=== PATIENT | female | born 1985 | race Caucasian/White ===

== ENCOUNTER 2019-02-09 17:06 | Emergency (ER) | payer OTHER, SELFPAY ==
[2019-02-09 17:26] VITALS: BP 113/78; PULSE 75; RESP 16; TEMP 37.2; O2SAT 99; BMI 28.0
--- NOTE | 2019-02-09 17:30 | DI.RAD.S_ITS ---
PROCEDURE: XR FINGER RT MIN 2V INDICATIONS: jose a kaur, now with right thumb pain and swelling TECHNIQUE: AP hand, 2 views of the thumb were obtained COMPARISON: None. FINDINGS: Bones: No fractures or dislocations. No suspicious bony lesions. Soft tissues: No suspicious soft tissue calcifications. IMPRESSION: No acute osseous abnormality of the thumb. Dictated by: Bony Bolanos M.D. on 02/09/2019 at 17:00 Approved by: Bony Bolanos M.D. on 02/09/2019 at 17:01
--- NOTE | 2019-02-09 18:20 | ED.UPPEXIN ---
HPI - Extremity Injury (Upper) <JENNIFER WilsonMARY [facility] - Last Filed: 02/09/19 18:27> General Chief Complaint: Extremity Injury, Upper Stated Complaint: thumb hurting Time Seen by Provider: 02/09/19 17:44 Source: patient Mode of arrival: ambulatory Limitations: no limitations History of Present Illness HPI narrative: The patient is a 33-year-old female nonsmoker with a chief complaint of right thumb pain. She states that she was in a [employer] turned event earlier today and hit a board incorrectly with her thumb. She states she has some movement. She has taken diclofenac. She has not applied ice. She states she has decreased range of motion. She denies any previous injury to that extremity. She is concerned about a fracture. She is concerned that she had increased bruising since the injury. She states this happened at approximately noon today Related Data Allergies Allergy/AdvReac Type Severity Reaction Status Date / Time codeine AdvReac Verified 02/09/19 17:26 duloxetine [From Cymbalta] AdvReac Verified 02/09/19 17:26 Penicillins AdvReac Swelling Verified 02/09/19 17:26 of Lip/Tongue/Throat Sulfa (Sulfonamide AdvReac Verified 02/09/19 17:26 Antibiotics) tetracycline AdvReac Verified 02/09/19 17:26 vancomycin AdvReac Verified 02/09/19 17:26 Review of Systems <[facility] - Last Filed: 02/09/19 18:27> Review of Systems GENERAL: Denies chills, fatigue, malaise, fever, sweats. HEENT: Denies sinus pain, ear pain, sore throat, difficulty swallowing, dizziness. RESPIRATORY: Denies dyspnea, cough, wheezing, hemoptysis, sputum. CARDIOVASCULAR: Denies chest pain, palpitations, orthopnea, edema, GASTROINTESTINAL: Denies nausea, vomiting, abdominal pain, diarrhea, constipation, melena. : Denies dysuria, frequency, incontinence, hematuria, urinary retention. MUSCULOSKELETAL: See HPI SKIN: See HPI NEUROLOGIC: Denies weakness, headache, numbness, change in speech, confusion, seizures, incoordination. PSYCHIATRIC: No concerning psychosocial issues. 12 point review of systems is negative except for those stated above PFSH <JENNIFER WilsonMARY [facility] - Last Filed: 02/09/19 18:27> Medical History (Updated 02/09/19 @ 18:26 by DEZ Wilson) Family history non-contributory (Acute) Social History Smoking Status: Never smoker Social History Smoking Status: Never smoker Exam <DEZ Wilson - Last Filed: 02/09/19 18:27> Narrative Exam Narrative: GENERAL: This is a well-nourished, well-developed patient, no acute distress HEAD: Atraumatic. Normocephalic. No temporal or scalp tenderness. EYES: Pupils equal round and reactive. Extraocular motions intact. No scleral icterus. No injection or drainage. ENT: Nose without bleeding, purulent drainage or septal hematoma. Throat without erythema, tonsillar hypertrophy or exudate. Uvula midline. Airway patent. NECK: Trachea midline. No JVD or lymphadenopathy. Supple, nontender, no meningeal signs. CARDIOVASCULAR: Regular rate and rhythm RESPIRATORY: No cough. No increased respiratory effort. No accessory muscle use. EXTREMITIES: Pain to palpation generalized 1st digit right hand. Capillary refill less than 2 seconds. Able to flex and extend right thumb. No palpable deformity.. She has no pain to palpation of right wrist. No snuffbox tenderness to palpation. Positive radial pulse. BACK: Nontender without deformity or crepitance. No flank tenderness. NEURO: AOx3. SKIN: Ecchymosis noted over 1st digit of right hand. Initial Vital Signs Initial Vital Signs: Vital Signs Temperature 98.9 F 02/09/19 17:26 Pulse Rate 75 02/09/19 17:26 Respiratory Rate 16 02/09/19 17:26 Blood Pressure 113/78 02/09/19 17:26 Pulse Oximetry 99 02/09/19 17:26 <Dorita Herrera DO - Last Filed: 02/10/19 07:31> Initial Vital Signs Initial Vital Signs: Vital Signs Temperature 98.9 F 02/09/19 17:26 Pulse Rate 75 02/09/19 17:26 Respiratory Rate 16 02/09/19 17:26 Blood Pressure 113/78 02/09/19 17:26 Pulse Oximetry 99 02/09/19 17:26 Course <DEZ Wilson - Last Filed: 02/09/19 18:27> Orders Ordered: ED Orders 02/09/19 17:30 XR finger RT min 2V Stat Vital Signs - 8 hr 02/09/19 17:26 Temperature 98.9 F Pulse Rate 75 Respiratory Rate 16 Blood Pressure 113/78 Pulse Oximetry 99 <Dorita Herrera DO - Last Filed: 02/10/19 07:31> Orders Ordered: ED Orders 02/09/19 17:30 XR finger RT min 2V Stat Vital Signs - 8 hr 02/09/19 17:26 Temperature 98.9 F Pulse Rate 75 Respiratory Rate 16 Blood Pressure 113/78 Pulse Oximetry 99 MDM - Extremity Injury (Upper) <DEZ Wilson - Last Filed: 02/09/19 18:27> Imaging Data thumb x-ray: Radiologist's impression: [address] [address] XRay Report Signed Patient: Tana Hui#: [id number] : 1985Acct:[id number] Age/Sex: 33 / FDate of Service: 02/09/19 Loc: ED Accession Number: [id number] Procedure: XR finger RT min 2V Ordering Provider: Dorita Herrera D.O. PROCEDURE: XR FINGER RT MIN 2V INDICATIONS: tae kwondo, now with right thumb pain and swelling TECHNIQUE: AP hand, 2 views of the thumb were obtained COMPARISON: None. FINDINGS: Bones: No fractures or dislocations. No suspicious bony lesions. Soft tissues: No suspicious soft tissue calcifications. IMPRESSION: No acute osseous abnormality of the thumb. Dictated by: Bony Bolanos M.D. on 02/09/2019 at 17:00 Approved by: Bony Bolanos M.D. on 02/09/2019 at 17:01 [facility] Narrative Medical decision making narrative: The patient is a 33-year-old female who presents with a chief complaint of thumb pain after hitting on board during intake went to competition. Her x-ray shows no acute fractures. I discussed at length rest ice compression elevation as well as [id number] pain medications as needed and able. She is neurovascularly intact. Encouraged follow-up with PCP if needed. Discussed possibility of an occult fracture. Patient has no questions or concerns upon discharge and states follow-up precautions with her PCP as well as return precautions the emergency department such as decreased circulation to her thumb or any acute concerns. The patient declined any Volodymyr wrap or immobility in the emergency department. Discharge Plan Departure Patient Disposition: Home Clinical Impression: Contusion of left thumb Qualifiers: Encounter type: initial encounter Damage to nail status: without damage Qualified Code(s): S60.012A - Contusion of left thumb without damage to nail, initial encounter Discharge Date/Time: 02/09/19 18:29 Interventions: ED Discharge Assessment Last Done: 02/09/19 18:29 Instructions: DI for Contusion, How To Perform RICE (Rest, Ice, Compress, Elevate) Activity Restrictions/Additional Instructions: Your x-ray today shows no fracture. Please use rest ice compression elevation Please use [id number] pain medications as needed and able. Please follow up with primary care provider if no improvement or worsening. Please come back to the emergency department for any acute concerns. Referrals: [facility] [Provider Group] <Dorita Herrera DO - Last Filed: 02/10/19 07:31> Cosign ED Attending Heidi Attestation: I was immediately available in the department for consultation. Documentation has been reviewed. I agree with assessment and plan.
--- NOTE | 2019-02-09 18:26 | ED_ITS ---
HPI - Extremity Injury (Upper) <[facility] - Last Filed: 02/09/19 18:27> General Chief Complaint: Extremity Injury, Upper Stated Complaint: thumb hurting Time Seen by Provider: 02/09/19 17:44 Source: patient Mode of arrival: ambulatory Limitations: no limitations History of Present Illness HPI narrative: The patient is a 33-year-old female nonsmoker with a chief complaint of right thumb pain. She states that she was in a [employer] turned event earlier today and hit a board incorrectly with her thumb. She states she has some movement. She has taken diclofenac. She has not applied ice. She states she has decreased range of motion. She denies any previous injury to that extremity. She is concerned about a fracture. She is concerned that she had increased bruising since the injury. She states this happened at approximately noon today Related Data Allergies Allergy/AdvReac Type Severity Reaction Status Date / Time codeine AdvReac Verified 02/09/19 17:26 duloxetine [From Cymbalta] AdvReac Verified 02/09/19 17:26 Penicillins AdvReac Swelling Verified 02/09/19 17:26 of Lip/Tongue/Throat Sulfa (Sulfonamide AdvReac Verified 02/09/19 17:26 Antibiotics) tetracycline AdvReac Verified 02/09/19 17:26 vancomycin AdvReac Verified 02/09/19 17:26 Review of Systems <[facility] - Last Filed: 02/09/19 18:27> Review of Systems GENERAL: Denies chills, fatigue, malaise, fever, sweats. HEENT: Denies sinus pain, ear pain, sore throat, difficulty swallowing, dizziness. RESPIRATORY: Denies dyspnea, cough, wheezing, hemoptysis, sputum. CARDIOVASCULAR: Denies chest pain, palpitations, orthopnea, edema, GASTROINTESTINAL: Denies nausea, vomiting, abdominal pain, diarrhea, constipation, melena. : Denies dysuria, frequency, incontinence, hematuria, urinary retention. MUSCULOSKELETAL: See HPI SKIN: See HPI NEUROLOGIC: Denies weakness, headache, numbness, change in speech, confusion, seizures, incoordination. PSYCHIATRIC: No concerning psychosocial issues. 12 point review of systems is negative except for those stated above PFSH <[facility] - Last Filed: 02/09/19 18:27> Medical History (Updated 02/09/19 @ 18:26 by DEZ Wilson) Family history non-contributory (Acute) Social History Smoking Status: Never smoker Social History Smoking Status: Never smoker Exam <DEZ Wilson - Last Filed: 02/09/19 18:27> Narrative Exam Narrative: GENERAL: This is a well-nourished, well-developed patient, no acute distress HEAD: Atraumatic. Normocephalic. No temporal or scalp tenderness. EYES: Pupils equal round and reactive. Extraocular motions intact. No scleral icterus. No injection or drainage. ENT: Nose without bleeding, purulent drainage or septal hematoma. Throat without erythema, tonsillar hypertrophy or exudate. Uvula midline. Airway patent. NECK: Trachea midline. No JVD or lymphadenopathy. Supple, nontender, no meningeal signs. CARDIOVASCULAR: Regular rate and rhythm RESPIRATORY: No cough. No increased respiratory effort. No accessory muscle use. EXTREMITIES: Pain to palpation generalized 1st digit right hand. Capillary refill less than 2 seconds. Able to flex and extend right thumb. No palpable deformity.. She has no pain to palpation of right wrist. No snuffbox tenderness to palpation. Positive radial pulse. BACK: Nontender without deformity or crepitance. No flank tenderness. NEURO: AOx3. SKIN: Ecchymosis noted over 1st digit of right hand. Initial Vital Signs Initial Vital Signs: Vital Signs Temperature 98.9 F 02/09/19 17:26 Pulse Rate 75 02/09/19 17:26 Respiratory Rate 16 02/09/19 17:26 Blood Pressure 113/78 02/09/19 17:26 Pulse Oximetry 99 02/09/19 17:26 <Dorita Herrera DO - Last Filed: 02/10/19 07:31> Initial Vital Signs Initial Vital Signs: Vital Signs Temperature 98.9 F 02/09/19 17:26 Pulse Rate 75 02/09/19 17:26 Respiratory Rate 16 02/09/19 17:26 Blood Pressure 113/78 02/09/19 17:26 Pulse Oximetry 99 02/09/19 17:26 Course <DEZ Wilson - Last Filed: 02/09/19 18:27> Orders Ordered: ED Orders 02/09/19 17:30 XR finger RT min 2V Stat Vital Signs - 8 hr 02/09/19 17:26 Temperature 98.9 F Pulse Rate 75 Respiratory Rate 16 Blood Pressure 113/78 Pulse Oximetry 99 <Dorita Herrera DO - Last Filed: 02/10/19 07:31> Orders Ordered: ED Orders 02/09/19 17:30 XR finger RT min 2V Stat Vital Signs - 8 hr 02/09/19 17:26 Temperature 98.9 F Pulse Rate 75 Respiratory Rate 16 Blood Pressure 113/78 Pulse Oximetry 99 MDM - Extremity Injury (Upper) <DEZ Wilson - Last Filed: 02/09/19 18:27> Imaging Data thumb x-ray: Radiologist's impression: [address] [address] XRay Report Signed Patient: Tana Hui#: [id number] : 1985Acct:[id number] Age/Sex: 33 / FDate of Service: 02/09/19 Loc: ED Accession Number: [id number] Procedure: XR finger RT min 2V Ordering Provider: Dorita Herrera D.O. PROCEDURE: XR FINGER RT MIN 2V INDICATIONS: tae kwondo, now with right thumb pain and swelling TECHNIQUE: AP hand, 2 views of the thumb were obtained COMPARISON: None. FINDINGS: Bones: No fractures or dislocations. No suspicious bony lesions. Soft tissues: No suspicious soft tissue calcifications. IMPRESSION: No acute osseous abnormality of the thumb. Dictated by: Bony Bolanos M.D. on 02/09/2019 at 17:00 Approved by: Bony Bolanos M.D. on 02/09/2019 at 17:01 [facility] Narrative Medical decision making narrative: The patient is a 33-year-old female who presents with a chief complaint of thumb pain after hitting on board during intake went to competition. Her x-ray shows no acute fractures. I discussed at length rest ice compression elevation as well as [id number] pain medications as needed and able. She is neurovascularly intact. Encouraged follow-up with PCP if needed. Discussed possibility of an occult fracture. Patient has no questions or concerns upon discharge and states follow-up precautions with her PCP as well as return precautions the emergency department such as decreased circulation to her thumb or any acute concerns. The patient declined any Volodymyr wrap or immobility in the emergency department. Discharge Plan Departure Patient Disposition: Home Clinical Impression: Contusion of left thumb Qualifiers: Encounter type: initial encounter Damage to nail status: without damage Qualified Code(s): S60.012A - Contusion of left thumb without damage to nail, initial encounter Discharge Date/Time: 02/09/19 18:29 Interventions: ED Discharge Assessment Last Done: 02/09/19 18:29 Instructions: DI for Contusion, How To Perform RICE (Rest, Ice, Compress, Elevate) Activity Restrictions/Additional Instructions: Your x-ray today shows no fracture. Please use rest ice compression elevation Please use [id number] pain medications as needed and able. Please follow up with primary care provider if no improvement or worsening. Please come back to the emergency department for any acute concerns. Referrals: [facility] [Provider Group] <Dorita Herrera DO - Last Filed: 02/10/19 07:31> Cosign ED Attending Heidi Attestation: I was immediately available in the department for consultation. Documentation has been reviewed. I agree with assessment and plan.
== END 2019-02-09 18:29 | disposition home or self-care (01) ==
PROVIDERS: Emergency Provider Nurse Practitioner Family
DX: S60.012A Contusion of left thumb without damage to nail, initial encounter (principal)
CPT/HCPCS: 73140; 99282; 99283

== ENCOUNTER 2019-07-04 19:43 | Emergency (ER) | payer OTHER, SELFPAY ==
--- NOTE | 2019-07-04 19:53 | ED.URI ---
HPI - URI/Sore Throat <Mady Acevedo PA-C - Last Filed: 07/04/19 20:35> General Chief Complaint: Upper Respiratory Symptoms Stated Complaint: sore throat, make sure no strep Time Seen by Provider: 07/04/19 19:50 Source: patient Mode of arrival: Ambulatory Limitations: no limitations History of Present Illness HPI Narrative: This 28-year-old female comes to ED secondary to concern for strep throat. She states that a coworker's son had this, and in the last 2-3 days she has had worsening sore throat, spouse noted white pockets and swelling on her tonsils. She has had fever up to 101-1 0 to range at home, has been taking ibuprofen. She states this is more severe than the sore throats that she has had in the past, but not short of breath or having difficulty swallowing. She states that her left ear feels a little bit congestion and sore. She has had some headache that is not typical of her previous sinus headaches, denies sinus pain. She denies cough, wheeze, dyspnea or chest pain. She has noted some swollen glands. She denies possibility of . She has multiple antibiotic allergies Related Data Previous Rx's Medication Instructions Recorded azithromycin See Rx Instructions .ROUTE 07/04/19 .COMPLEX #6 tab lidocaine HCl [Lidocaine Viscous] 15 ml PO Q3-4H PRN #150 ml 07/04/19 Allergies Allergy/AdvReac Type Severity Reaction Status Date / Time codeine AdvReac Verified 07/04/19 19:59 duloxetine [From Cymbalta] AdvReac Verified 07/04/19 19:59 Penicillins AdvReac Swelling Verified 07/04/19 19:59 of Lip/Tongue/Throat Sulfa (Sulfonamide AdvReac Verified 07/04/19 19:59 Antibiotics) tetracycline AdvReac Verified 07/04/19 19:59 vancomycin AdvReac Verified 07/04/19 19:59 Review of Systems <Mady Acevedo PA-C - Last Filed: 07/04/19 20:35> Review of Systems ROS Unobtainable: All systems reviewed & are unremarkable except as noted in HPI and below Patient History <Mady Acevedo PA-C - Last Filed: 07/04/19 20:35> Medical History (Updated 01/16/20 @ 20:34 by Mady Acevedo PA-C) Allergy-induced asthma (Chronic) Chronic sinusitis (Chronic) Family history non-contributory (Acute) Surgical History (Updated 07/04/19 @ 20:34 by Mady Acevedo PA-C) History of sinus surgery (Resolved) Status post hysterectomy with oophorectomy (Resolved) Social History Smoking Status: Never smoker Smoking Status: Never smoker Substance Use Type: does not use Exam <Mady Acevedo PA-C - Last Filed: 07/04/19 20:35> Narrative Exam Narrative: GENERAL APPEARANCE: Patient comfortable, in NAD HEAD: No sinus TTP. EYES: PERRL, EOMI. EARS: Normal auditory canals, TMS intact with normal light reflexes. ORAL CAVITY: Normal oropharynx. THROAT: Erythematous with enlarged tonsils and some posterior exudate on postnasal drip, no tonsillar exudate NECK/THYROID: Neck supple, full range of motion, shotty, tender anterior cervical lymphadenopathy. LUNGS: Clear to auscultation bilaterally, no cough on exam. HEART: RRR without murmur, nl S1, S2, no S3 or S4 DERMATOLOGIC: No exanthem Initial Vital Signs Initial Vital Signs: Vital Signs Temperature 97.6 F 07/04/19 19:58 Pulse Rate 74 07/04/19 19:58 Respiratory Rate 16 07/04/19 19:58 Blood Pressure 106/71 07/04/19 19:58 Pulse Oximetry 98 07/04/19 19:58 <Ted Shaw DO - Last Filed: 07/05/19 00:29> Initial Vital Signs Initial Vital Signs: Vital Signs Temperature 97.6 F 07/04/19 19:58 Pulse Rate 74 07/04/19 19:58 Respiratory Rate 16 07/04/19 19:58 Blood Pressure 106/71 07/04/19 19:58 Pulse Oximetry 98 07/04/19 19:58 Course <Mady Acevedo PA-C - Last Filed: 07/04/19 20:35> Vital Signs Vital signs: Vital Signs - 8 hr 07/04/19 19:58 Temperature 97.6 F Pulse Rate 74 Respiratory Rate 16 Blood Pressure 106/71 Pulse Oximetry 98 <DO Brett Maguire Last Filed: 07/05/19 00:29> Vital Signs Vital signs: Vital Signs - 8 hr 07/04/19 19:58 Temperature 97.6 F Pulse Rate 74 Respiratory Rate 16 Blood Pressure 106/71 Pulse Oximetry 98 MDM - URI/Sore Throat <Mady Acevedo PA-C - Last Filed: 07/04/19 20:35> Lab Data Labs: Point of Care Testing Rapid Strep A Positive <Ted Shaw DO - Last Filed: 07/05/19 00:29> Lab Data Labs: Point of Care Testing Rapid Strep A Positive Discharge Plan Departure Patient Disposition: Home Clinical Impression: Strep throat Discharge Date/Time: 07/04/19 20:26 Instructions: DI for Strep Throat Activity Restrictions/Additional Instructions: As we talked about, you should return if you have any acutely worsening symptoms, or new symptoms such as difficulty breathing or managing your secretions. Otherwise, please start the antibiotic when you pick it up tonight. Remain off of work tomorrow. Continue ibuprofen for pain and fever, and you can also use the viscous lidocaine to help with pain. You can return to work on Monday if you are feeling better. Your prescriptions were sent electronically to [facility] [place] Prescriptions: New azithromycin 250 mg tablet See Rx Instructions .ROUTE .COMPLEX Qty: 6 RF: 0 Lidocaine Viscous 2 % solution 15 ml PO Q3-4H PRN (Reason: ST) Qty: 150 RF: 0 Stand Alone Forms: Work Release Note, Work/School Release
[2019-07-04 19:58] VITALS: BP 106/71; PULSE 74; RESP 16; TEMP 36.4; O2SAT 98; BMI 28.1
== END 2019-07-04 20:26 | disposition home or self-care (01) ==
PROVIDERS: Emergency Provider Internal Medicine
DX: J02.0 Streptococcal pharyngitis (principal)
CPT/HCPCS: 87880; 99281; 99283

== ENCOUNTER 2021-03-27 00:28 | Emergency (ER) | payer OTHER, SELFPAY ==
[2021-03-27 00:40] VITALS: BP 124/76; PULSE 81; RESP 16; TEMP 36.9; O2SAT 99; BMI 28.3
--- NOTE | 2021-03-27 01:11 | DI.US.S_ITS ---
PROCEDURE: US ABDOMEN LIMITED INDICATIONS: RUQ PAIN TECHNIQUE: Real-time focused scanning was performed of the abdomen, with image documentation. COMPARISON: None. FINDINGS: Liver: Homogeneous echotexture. No evidence of focal mass lesion. No intra hepatic biliary ductal dilatation Gallbladder: Sonolucent without cholelithiasis. No gallbladder wall thickening. No pericholecystic fluid or Burks's sign. Common Bile Duct: 6 point mm. Pancreas: Unremarkable as visualized IMPRESSION: Unremarkable right upper quadrant ultrasound Approved by: Teddy Sanchez M.D. on 03/27/2021 at 0:56
--- NOTE | 2021-03-27 01:12 | ED_ITS ---
HPI - Abdominal Pain General Chief Complaint: Abdominal Pain Stated Complaint: right side pain since last night Time Seen by Provider: 03/27/21 01:05 Source: patient Mode of arrival: Ambulatory Limitations: no limitations History of Present Illness HPI narrative: Patient here for right upper quadrant pain that radiates to right middle back that started 9:00 p.m. after eating pizza and hot wings tonight. Has been constant. Sharp 01/26. Did take medicine prior to arrival without complete relief. Patient has had similar abdominal pain in the past few years that would resolve on its own. Still has her gallbladder. Episodes in the past worsened after eating. History hysterectomy. No chest pain. No shoulder pain. Positive Burks sign on exam Related Data Previous Rx's Medication Instructions Recorded azithromycin 250 mg tablet See Rx Instructions .ROUTE 07/04/19 .COMPLEX #6 tab lidocaine HCl 2 % mucosal solution 15 ml PO Q3-4H PRN #150 ml 07/04/19 (Lidocaine Viscous) pantoprazole 40 mg tablet,delayed 40 mg PO DAILY #14 tab 03/27/21 release (Protonix) sucralfate 1 gram tablet (Carafate) 1 g PO BID #20 tab 03/27/21 Allergies Allergy/AdvReac Type Severity Reaction Status Date / Time codeine AdvReac Verified 07/04/19 19:59 duloxetine [From Cymbalta] AdvReac Verified 07/04/19 19:59 Penicillins AdvReac Swelling Verified 07/04/19 19:59 of Lip/Tongue/Throat Sulfa (Sulfonamide AdvReac Verified 07/04/19 19:59 Antibiotics) tetracycline AdvReac Verified 07/04/19 19:59 vancomycin AdvReac Verified 07/04/19 19:59 Review of Systems Review of Systems Narrative: GENERAL: Denies chills, fatigue, malaise, fever, sweats. HEENT: Denies sinus pain, ear pain, sore throat RESPIRATORY: Denies dyspnea, cough CARDIOVASCULAR: Denies chest pain, palpitations GASTROINTESTINAL: Positive fornausea, denies vomiting, positive abdominal pain : Denies dysuria, frequency, hematuria MUSCULOSKELETAL: denies muscle or bony pain SKIN: Denies rash, skin lesions NEUROLOGIC: Denies weakness, numbness ROS Unobtainable: All systems reviewed & are unremarkable except as noted in HPI and below Patient History Medical History Allergy-induced asthma Chronic sinusitis Family history non-contributory Surgical History History of sinus surgery Status post hysterectomy with oophorectomy Social History Smoking Status: Never smoker Smoking Status: Never smoker Substance Use Type: does not use Exam Narrative Exam Narrative: GENERAL: in no distress, not toxic not dyspneic HEAD: Normocephalic. EYES: Pupils equal round No scleral icterus. No injection no discharge ENT: Mucous membranes moist. NECK: Trachea midline. CARDIOVASCULAR: Regular rate and rhythm without murmurs RESPIRATORY: Clear to auscultation. Breath sounds equal bilaterally. No wheezes, rales, or rhonchi. GASTROINTESTINAL: Abdomen soft, reproducible right upper quadrant tenderness, positive Burks sign, bowel sounds present, no peritoneal signs EXTREMITIES: No gross deformities. BACK: No flank tenderness. NEURO: AOx4. SKIN: Warm and dry PSYCH: Not anxious, is cooperative Initial Vital Signs Initial Vital Signs: Vital Signs Temperature 98.4 F 03/27/21 00:40 Pulse Rate 81 03/27/21 00:40 Respiratory Rate 16 03/27/21 00:40 Blood Pressure 124/76 03/27/21 00:40 Pulse Oximetry 99 03/27/21 00:40 Course Course Course Narrative: No new issues during course of stay Orders Ordered: Discontinued Medications Morphine Sulfate (Morphine 4 Mg/Ml Inj) 4 mg IV NOW ONE Stop: 03/27/21 01:11 Last Admin: 03/27/21 01:29 Dose: 4 mg Documented by: DAKOTAH Ondansetron HCl (Ondansetron 4 Mg/2 Ml Inj) 4 mg IV NOW ONE Stop: 03/27/21 01:11 Last Admin: 03/27/21 01:29 Dose: 4 mg Documented by: DAKOTAH Reevaluation(s) Reevaluation #1: Pain-free at this time. Reviewed results with patient and . Agree for follow-up with provided general surgeon. May need HIDA scan. Dietary changes needed. Return precautions reviewed Time: 02:38 Vital Signs Vital signs: Vital Signs - 8 hr 03/27/21 00:40 Temperature 98.4 F Pulse Rate 81 Respiratory Rate 16 Blood Pressure 124/76 Pulse Oximetry 99 MDM - Abdominal Pain Differential Diagnosis Differential diagnosis: Likely abdominal pain, pancreatitis and other (Cholecystitis) Lab Data Result diagrams: 03/27/21 01:01 03/27/21 01:01 Labs: Lab Results 03/27/21 03/27/21 Range/Units 01:01 01:01 WBC 9.6 (4.5-11.0) X10^3/uL RBC 4.54 (4.0-5.2) X10^6/uL Hgb 13.4 (12.0-16.0) g/dL Hct 39.5 (36-46) % MCV 86.9 (80-100) fL MCH 29.5 (26-34) PG MCHC 33.9 (30-36) % RDW 12.4 (11.6-14.8) % Plt Count 214 (150-400) X10^3/uL Neut % (Auto) 62.6 (50-75) % Lymph % (Auto) 29.6 (25-40) % Hockley % (Auto) 5.8 (3-14) % Eos % (Auto) 1.5 L (2-4) % Baso % (Auto) 0.5 (0-2) % Neut # (Auto) 6000 (7750-4925) /uL Lymph # (Auto) 2800 (1434-8292) /uL Hockley # (Auto) 600 (0-900) /uL Eos # (Auto) 100 (0-450) /uL Baso # (Auto) 0 (0-100) /uL Sodium 137 (137-145) mmol/L Potassium 3.7 (3.4-5.1) mmol/L Chloride 103 (98-107) mmol/L Carbon Dioxide 27 (22-32) mmol/L BUN 16 (7-17) mg/dL Creatinine 0.86 (0.52-1.04) mg/dL Estimated GFR > 60.0 (>60) mL/min BUN/Creatinine Ratio 18.6 (6-22) Glucose 99 (70-100) mg/dL Calcium 9.7 (8.4-10.2) mg/dL Total Bilirubin 0.5 (0.2-1.3) mg/dL AST 22 (14-36) IU/L ALT 15 (<35) IU/L Alkaline Phosphatase 64 (38-126) U/L Total Protein 8.1 (6.3-8.2) g/dL Albumin 4.5 (3.5-5.0) g/dL Globulin 3.6 (1.7-4.1) g/dL Albumin/Globulin Ratio 1.3 (1.0-2.8) Lipase 203 (23-300) U/L Imaging Data US - abdomen: Radiologist's Impression: [address] [address] Ultrasound Report Signed Patient: Darby Hui MR#: [id number] : 1985 Acct:[id number] Age/Sex: 35 / F Date of Service: 03/27/21 Loc: ED Accession Number: [id number] ?? Procedure: US abdomen limited Ordering Provider: Carlos Grider MD PROCEDURE: US ABDOMEN LIMITED ? INDICATIONS:? RUQ PAIN ? TECHNIQUE:? Real-time focused scanning was performed of the abdomen, with image documentation.? ? COMPARISON:? None. ? FINDINGS: ? Liver:? Homogeneous echotexture.? No evidence of focal mass lesion.? No intra hepatic biliary ductal dilatation ? Gallbladder:? Sonolucent without cholelithiasis.? No gallbladder wall thickening. No pericholecystic fluid or Burks's sign. ? Common Bile Duct:? 6 point mm. ? Pancreas:? Unremarkable as visualized ? IMPRESSION:? ? Unremarkable right upper quadrant ultrasound ? ? ? Approved by: Teddy Sanchez M.D. on 03/27/2021 at 0:56? MDM Narrative Medical decision making narrative: Appropriate for discharge home. Vital signs exam laboratory studies and imaging reassuring. Reviewed with patient and could be biliary dyskinesia. Still needs HIDA scan. Dietary changes needed. Return precautions reviewed with him. Discharge Plan Departure Patient Disposition: Home Clinical Impression: Abdominal pain Qualifiers: Abdominal location: right upper quadrant Qualified Code(s): R10.11 - Right upper quadrant pain Instructions: DI for Abdominal Pain-Adult Activity Restrictions/Additional Instructions: Return if worsening questions or concerns. No driving tonight. See family doctor or call provided general surgery office for re-evaluation next week. May need to schedule outpatient HIDA scan for gallbladder. No fried fatty greasy foods. No carbonated drinks. Prescriptions: New pantoprazole [Protonix] 40 mg tablet,delayed release (DR/EC) 40 mg PO DAILY Qty: 14 RF: 0 sucralfate [Carafate] 1 gram tablet 1 g PO BID Qty: 20 RF: 0 No Action azithromycin 250 mg tablet See Rx Instructions .ROUTE .COMPLEX Qty: 6 RF: 0 Lidocaine Viscous 2 % solution 15 ml PO Q3-4H PRN (Reason: ST) Qty: 150 RF: 0 Referrals: Joshua Pulido MD [Physician] -
[2021-03-27 01:20] LABS: Add Manual Diff / Slide Review NO; Basophils Absolute Auto 0 /uL (0-100); Basophils Percent Auto 0.5 % (0-2); Eosinophils Absolute Auto 100 /uL (0-450); Eosinophils Percent Auto 1.5 % (2-4); Hematocrit 39.5 % (36-46); Hemoglobin 13.4 g/dL (12.0-16.0); Lymphocytes Absolute Auto 2800 /uL (1100-4500); Lymphocytes Percent Auto 29.6 % (25-40); Mean Corpuscular HGB Conc 33.9 % (30-36); Mean Corpuscular Hemoglobin 29.5 PG (26-34); Mean Corpuscular Volume 86.9 fL (80-100); Monocytes Absolute Auto 600 /uL (0-900); Monocytes Percent Auto 5.8 % (3-14); Neutrophils Absolute Auto 6000 /uL (1500-7000); Neutrophils Percent Auto 62.6 % (50-75); Platelet Count 214 X10^3/uL (150-400); Red Blood Cell Count 4.54 X10^6/uL (4.0-5.2); Red Cell Distribution Width 12.4 % (11.6-14.8); White Blood Cell Count 9.6 X10^3/uL (4.5-11.0)
[2021-03-27 01:25] LABS: Alanine Aminotransferase 15 IU/L (<35); Albumin 4.5 g/dL (3.5-5.0); Albumin Globulin Ratio 1.3 (1.0-2.8); Alkaline Phosphatase 64 U/L (38-126); Aspartate Aminotransferase 22 IU/L (14-36); BUN Creatinine Ratio 18.6 (6-22); Bilirubin Total 0.5 mg/dL (0.2-1.3); Blood Urea Nitrogen 16 mg/dL (7-17); Calcium 9.7 mg/dL (8.4-10.2); Carbon Dioxide 27 mmol/L (22-32); Chloride 103 mmol/L (98-107); Estimated Glomerular Filt Rate > 60.0 mL/min (>60); Globulin 3.6 g/dL (1.7-4.1); Glucose 99 mg/dL (70-100); HEMOLYSIS < 15 (0-50); Lipase 203 U/L (23-300); Potassium 3.7 mmol/L (3.4-5.1); Sodium 137 mmol/L (137-145); Total Protein 8.1 g/dL (6.3-8.2)
[2021-03-27] MEDS: ONDANSETRON 4 MG/2 ML INJ IV (01:29)
[2021-03-27] MEDS: MORPHINE 4 MG/ML INJ IV (01:29)
[2021-03-27 02:56] VITALS: BP 98/63; PULSE 66; RESP 16; O2SAT 99
== END 2021-03-27 02:55 | disposition home or self-care (01) ==
PROVIDERS: Emergency Provider Emergency Medicine
DX: R10.11 Right upper quadrant pain (principal)
CPT/HCPCS: 36415; 76705; 80053; 83690; 85025; 96374; 96375; 99284; J2270; J2405

== ENCOUNTER → 2021-04-16 10:40 | Outpatient (CLI) | payer OTHER, SELFPAY ==
[2021-04-16 11:15] LABS: COVID19 -Nasal RAPID Negative (Negative)
== END ==
PROVIDERS: Visit Provider Surgery
DX: Z01.812 Encounter for preprocedural laboratory examination (principal); Z20.822 Contact with and (suspected) exposure to COVID-19
CPT/HCPCS: 87635; C9803

== ENCOUNTER 2021-04-19 09:52 | Day surgery (SDC) | payer OTHER, SELFPAY ==
--- NOTE | 2021-04-19 | PATH_ITS ---
[facility] Accession Number: [id number] . 01 Material submitted: . PART A: duodenum - RANDOM DUODENUM PART B: stomach - RANDOM ANTRUM . 02 Diagnosis: A. Random Duodenum: Duodenal mucosa with no diagnostic abnormality. Negative for active inflammation, features of sprue, dysplasia, or malignancy. . B. Random Antrum: Portions of gastric antral mucosa with mild chronic inflammation. Negative for Helicobacter organisms by immunohistochemistry. Negative for intestinal metaplasia. Negative for dysplasia or malignancy. MRV 04/22/2021 1443 Local . 02 Electronically signed: . Heather Hermosillo MD, Pathologist NPI- [id number] . 01 Gross description: . A. Received in formalin, labeled random duodenum and consists of three ortiz-pink fragments of soft tissue measuring 0.4 x 0.4 x 0.2 cm in aggregate. The specimen is entirely submitted in cassette A1. B. Received in formalin, labeled antrum and consists of three ortiz fragments of soft tissue measuring 0.5 x 0.4 x 0.2 cm in aggregate. The specimen is entirely submitted in cassette B1. (EA:cmc10 [id number]) /MRV 04/20/2021 1419 Local . 02 Microscopic: . B. An immunohistochemical stain was performed to evaluate for Helicobacter organisms and is negative. The control stain showed appropriate reactivity. . * This test was developed and its performance characteristics determined by [facility]. It has not been cleared or approved by the U.S. Food and Drug Administration. The FDA has determined that such clearance or approval is not necessary. This test is used for clinical purposes. It should not be regarded as investigational or for research. . 02 Pathologist provided ICD-10: R10.9 . 02 CPT . 335016, 182522, A35407 Performed at: 01 [facility] [address] [place] [address], [place], [place] [id number] MD Artem Hairston MD Phone: [phone] Performed at: 02 [facility] [address] [place], [place] [id number] MD Arlene Hsu MD Phone: [phone]
[2021-04-19 10:04] VITALS: BP 117/71; PULSE 80; RESP 16; TEMP 36.7; O2SAT 100; BMI 26.6
[2021-04-19] MEDS: LACTATED RINGERS 1,000 ML 42 ML IV (10:25)
--- NOTE | 2021-04-19 11:51 | PM.PREOP ---
Pre-operative Note COVID-19 COVID-19 status: Negative Result date/Date tested (Pos, Neg/Pending): 04/16/21 Interval Note History & Physical reviewed/Exam performed by Physician: Yes Changes to H&P: No ASA Class (for procedural sedation): I
[2021-04-19] MEDS: LIDOCAINE 4% SOLN 50 ML 20 ML TOP (12:14)
[2021-04-19] MEDS: ONDANSETRON 4 MG/2 ML INJ IV (12:15)
[2021-04-19] MEDS: fentaNYL 250 MCG/5 ML INJ IV (12:18)
[2021-04-19] MEDS: MIDAZOLAM 5 MG/5 ML VIAL IV (12:24)
--- NOTE | 2021-04-19 12:33 | P.OP.EGD_ITS ---
Operative Date/Time/Diagnoses Date of procedure: 04/19/21 Time of procedure: 12:34 Pre-op diagnosis: Dyspepsia Post-op diagnosis: same Procedure & Clinicians Study performed: Esophagogastroduodenoscopy Same procedure as scheduled: Yes Indications: Dyspepsia Surgeon: Bennie Burrell Procedure Notes SCOAP/Timeout: Performed Procedure in detail: Procedure in detail: A timeout was performed. Bite blocked was placed. Patient was positioned in a left lateral decubitus position. The endoscope was inserted through the bite block and through the esophagus and stomach and into the duodenum. The duodenal mucosa appeared normal. Random biopsies were taken from the 2nd portion of the duodenum with forceps. The scope was withdrawn into the duodenal bulb and no abnormality was noted. The scope was withdrawn into the stomach. There was mild antritis and random biopsies were taken from the antrum using forceps. The rest of the stomach was normal. The scope was retroflexed and no hiatal hernia was noted. The scope wa s withdrawn into the esophagus and no lesions were noted. The scope was withdrawn. Sedation minutes: 12 Specimen(s): other (Random biopsies of duodenum and antrum.) Complications: none Post-procedure Recommendations: Will call with biopsy results Disposition: PACU
[2021-04-19 12:34] VITALS: BP 116/72; PULSE 99; RESP 17; TEMP 37.2; O2SAT 100
[2021-04-19 12:39] VITALS: BP 105/70; PULSE 72; RESP 19; O2SAT 100
[2021-04-19 12:44] VITALS: BP 116/77; PULSE 75; RESP 16; TEMP 37.2; O2SAT 100
[2021-04-19 12:50] VITALS: BP 107/72; PULSE 83; RESP 16; TEMP 37.2; O2SAT 100
[2021-04-19 12:58] VITALS: BP 106/70; PULSE 72; RESP 17; TEMP 37.4; O2SAT 100
== END 2021-04-19 13:03 | disposition home or self-care (01) ==
PROVIDERS: PCP Physician Assistant; Referring Provider Family Medicine; Visit Provider Surgery
PROC: 0DJ08ZZ Inspection of Upper Intestinal Tract, Via Natural or Artificial Opening Endoscopic (ICD-10-PCS; CPT 43235; principal; 2021-04-19 10:45)
DX: K29.50 Unspecified chronic gastritis without bleeding (principal); J45.909 Unspecified asthma, uncomplicated
CPT/HCPCS: 43239; 99152; J2250; J2405; J3010

== ENCOUNTER → 2021-04-23 10:37 | Outpatient (CLI) | payer OTHER, SELFPAY ==
[2021-04-23 11:30] LABS: COVID19 -Nasal RAPID Negative (Negative)
== END ==
PROVIDERS: PCP Physician Assistant; Visit Provider Surgery
DX: Z20.822 Contact with and (suspected) exposure to COVID-19 (principal)
CPT/HCPCS: 87635; C9803

== ENCOUNTER 2021-04-26 06:35 | Day surgery (SDC) | payer OTHER, SELFPAY ==
[2021-04-22 08:01] VITALS: BMI 26.6
[2021-04-26] VITALS (13 sets, daily range): BP systolic 92–117; BP diastolic 59–78; PULSE 68–108; RESP 14–21; TEMP 36.2–37.2; O2SAT 96–100; BMI 26.6
--- NOTE | 2021-04-26 | PATH_ITS ---
[facility] Accession Number: [id number] . 01 Material submitted: . gallbladder - GALLBLADDER . 02 Diagnosis: Gallbladder, Cholecystectomy: Chronic cholecystitis and cholesterolosis. [facility] 04/28/2021 1045 Local . 02 Electronically signed: . Heather Hermosillo MD, Pathologist NPI- [id number] . 01 Gross description: . The specimen is received in formalin, labeled gallbladder and consists of a 5.0 x 2.2 x 1.9 cm previously disrupted gallbladder with a 0.2 cm in diameter cystic duct. The serosa is ortiz-pink and wrinkled. Opening reveals green viscous bile with no choleliths identified. The mucosa is green and velvety with cholesterolosis, and the wall thickness measures 0.2 cm. Human Factors Ergonomist sections are submitted, to include the en face margin (blue), in cassette A1. (EA:cmc10 [id number]) /V 04/27/2021 1243 Local . 02 Pathologist provided ICD-10: K81.1 . 02 CPT . 177804 Performed at: 01 [facility] [address], [place], [place] [id number] MD Artem Hairston MD Phone: [phone] Performed at: 02 [facility] [address] [place], [place] [id number] MD Arlene Hsu MD Phone: [phone]
[2021-04-26] MEDS: LACTATED RINGERS 1,000 ML 42 ML IV ×2 (07:19→10:30)
--- NOTE | 2021-04-26 07:26 | PM.PREOP ---
Pre-operative Note COVID-19 COVID-19 status: Negative Result date/Date tested (Pos, Neg/Pending): 04/23/21 Interval Note History & Physical reviewed/Exam performed by Physician: Yes Changes to H&P: No ASA Class (for procedural sedation): I
[2021-04-26] MEDS: CLINDAMYCIN 600 MG/50 ML PIGGYBACK 50 MG IV (07:45)
--- NOTE | 2021-04-26 08:06 | SUR.OPER ---
Supine on padded OR bed, head on pillow, safety belt at thigh, left arm padded and tucked at side. Right arm secured on padded arm board <90 degrees abduction. Legs uncrossed. Padded footboard in place. Tape over blanket to secure lower legs.
[2021-04-26] MEDS: ACETAMINOPHEN IV 1,000 MG/100 ML VIAL 400 MG IV (08:14)
[2021-04-26] MEDS: BUPIVACAINE 0.25% (PF) VIAL 30 ML INJ (08:18)
--- NOTE | 2021-04-26 09:25 | PM.OP.1 ---
Operative Date/Time/Diagnoses Date of procedure: 04/26/21 Time of procedure: 09:25 Pre-op diagnosis: Biliary dyskinesia Post-op diagnosis: same Procedure & Clinicians Procedure: Laparoscopic cholecystectomy Same procedure as scheduled: Yes Indications: Biliary dyskinesia Surgeon: Bennie Burrell Click Yes if Unassisted: Yes Anesthesia Type: General Operative Notes Findings: Some adhesions of omentum and mesentery to the right liver, minimal inflammation around the gallbladder Closure Type: primary Estimated Blood Loss (mL): 10 Procedure in detail: The patient was given preoperative antibiotic. The patient was brought to the operating room, placed on the table in the supine position. General endotracheal anesthesia was induced. The abdomen was prepped and draped. A time-out was performed. We made a 1 cm infraumbilical incision. We dissected down to the base of the umbilical stalk using cautery. We grasped the umbilical stalk with a Nohemi clamp to elevate the abdominal wall. We scored the fascia in the midline with cautery 1 cm. We pierced the peritoneum with a Peon clamp. The Harinder port was placed and the abdomen was insufflated to 15 mmHg. A 12 mm 30 degree laparoscopic was inserted. There was no evidence of any injury from the entry. Next, we placed 5 mm ports in the subxiphoid position and right upper quadrant at the midclavicular line and anterior axillary line. Patient was then positioned in reverse Trendelenburg and the table was tilted to the left. The gallbladder was grasped at the dome and retracted cephalad. There were some adhesions of mesenteric tissue to the right liver which were carefully dissected with cautery to allow full retraction of the gallbladder. We then dissected the cystic structures with a combination of hook cautery and blunt dissection. We obtained a critical view. We placed hemoclips on the cystic duct and artery and divided the cystic duct and artery sharply between the clips. The gallbladder was then dissected off the liver and placed in a specimen retrieval bag. We irrigated the right upper quadrant and all the aspirate returned clear. We then removed the 5 mm ports under direct vision we removed the Harinder port. We then injected some local into the fascia and closed the fascia with 2 interrupted 0 Vicryl sutures. The skin incisions were closed with 4 Monocryl and Steri-Strips were applied. Band-Aids were applied over the Steri-Strips. EBL: 10 mL Specimen: Gallbladder Complications: none Post-operative Condition: stable Disposition: PACU
[2021-04-26] MEDS: HYDROMORPHONE 2 MG INJ IV ×2 (09:48→10:03)
[2021-04-26] MEDS: hydrOXYzine 50 MG/ML INJ 25 MG IM (09:52)
[2021-04-26] MEDS: ONDANSETRON 4 MG/2 ML INJ IV ×2 (09:56→10:27)
[2021-04-26] MEDS: LORazepam 2 MG/ML INJ 0.25 MG IV ×2 (09:57→10:09)
[2021-04-26] MEDS: METOCLOPRAMIDE 10 MG/2 ML INJ IV (10:06)
--- NOTE | 2021-04-26 10:36 | SUR.PHASEI ---
1030 Has been in PACU for an hour. C/O pain 8-10 and nausea. Dilaudid given X2, and fentanyl by anesth, given, zofran given X2, reglan given, ativan given X1 and vistaril given. Still C/O pain of 10 and nausea. Running fluids in rapidly
[2021-04-26] MEDS: ePHEDrine 50 MG/ML VIAL 25 MG IM (11:11)
--- NOTE | 2021-04-26 11:16 | SUR.PHASEI ---
[address]ues to be [address]ated. Dr Bell notified. Order for IM ephedrine received and given
[2021-04-26] MEDS: OXYCODONE IR 5 MG TABLET PO (12:38)
== END 2021-04-26 12:49 | disposition home or self-care (01) ==
PROVIDERS: PCP Physician Assistant; Referring Provider Surgery; Visit Provider Surgery
PROC: 0FT44ZZ Resection of Gallbladder, Percutaneous Endoscopic Approach (ICD-10-PCS; CPT 47562; principal; 2021-04-26 07:45)
DX: K80.10 Calculus of gallbladder with chronic cholecystitis without obstruction (principal); K66.0 Peritoneal adhesions (postprocedural) (postinfection)
CPT/HCPCS: 47562; J0131; J1100; J1170; J1885; J2060; J2250; J2405; J2704; J2765; J3010; J3410